=== PATIENT | female | born 1980 | race Caucasian/White ===

== ENCOUNTER 2025-06-11 20:52 | Day surgery (SDC) | payer OTHER, SELFPAY ==
[2025-06-11] VITALS (10 sets, daily range): BP systolic 126–153; BP diastolic 74–99; BMI 46.0
[2025-06-11 11:42] LABS: Urine Character Clear (Clear)
[2025-06-11 11:47] LABS: Hematocrit 39.6 % (37.0-47.0); Hemoglobin 12.9 g/dL (12.0-16.0); Mean Corp Hgb Conc. 32.6 g/dL (33.0-37.0); Mean Corpuscular Volume 84.8 fL (81.0-99.0); Nucleated Red Blood Cells % 0 %; Platelet Count 311 10^3/uL (130-400); Red Cell Dist. Width 14.2 % (11.5-14.5)
[2025-06-11 12:09] LABS: ALT (SGPT) 12 U/L (0-35); AST (SGOT) 13 U/L (14-36); Albumin 3.9 g/dl (3.5-5.0); Alkaline Phosphatase 59 U/L (38-126); Blood Urea Nitrogen 13 mg/dl (7-17); Calcium 9.2 mg/dl (8.4-10.2); Carbon Dioxide 25 mmol/L (22-30); Chloride 109 mmol/L (98-107); Glucose 93 mg/dl (70-99); Lipase 60 U/L (23-300); Potassium 4.7 mmol/L (3.5-5.1); Sodium 138 mmol/L (135-145); Total Protein 6.7 g/dl (6.3-8.2); eGFR > 60.00
[2025-06-11 12:14] LABS: HCG, Serum Qualitative Screen Negative
--- NOTE | 2025-06-11 13:33 | ED.GENMED ---
History of Present Illness
<Kamari De Jesus MD, Resident - Last Filed: 06/11/25 15:53>
General
Chief Complaint: Abdominal Pain
Source: patient
Exam Limitations: none
Time Seen by Provider: 06/11/25 13:13
Nursing documentation reviewed up to this point in time: agreed with
History of Present Illness
History of Present Illness:
This is a 45-year-old female with history of PCOS, ovarian cyst, Chiari malformation and hypertension presenting in the emergency department with complaints of right lower quadrant pain which started when she woke up around 6:15 in the morning. She
went to the urgent care and was sent in the emergency department for further evaluation. Patient reports that pain is 8/10. Sharp, intermittent, unsure of any aggravating or relieving factors. Denies any radiation to groin or back. Denies any
urinary symptoms, denies any GI symptoms including constipation or diarrhea, nausea or vomiting, denies any fevers or chills, denies any chest pain, denies any shortness of breath.
Denies any recent sick contacts or any recent sickness.
Denies any changes in the medication recently.
Past History
<Kamari De Jesus MD, Resident - Last Filed: 06/11/25 15:53>
Past History
ED Past Medical History: HTN and Other (PCOS)
ED Past Surgical History: Brain
Patient has exhibited threatening behavior?: No
Social History
Tobacco: Non-smoker
Alcohol: Occasional
Drug: None
Personal: Single
Living: with family
Family History
Family History: Other (Noncontributory)
Review of Systems
<Kamari De Jesus MD, Resident - Last Filed: 06/11/25 15:53>
Review of Systems
Allergies reviewed?: Yes
All Other Systems: ROS reviewed and negative except as documented in HPI and ROS
Constitutional: Denies fever or chills
EENT: Denies sore throat
Respiratory: Denies cough
Cardiac: Denies chest pain
ABD/GI: Reports abdominal pain (Right lower quadrant and hypogastric quadrant); Denies nausea, vomiting, diarrhea or constipated
: Denies dysuria
Musculoskeletal: Denies joint pain
Skin: Denies itching
Neurological: Denies dizzy or headache
Endocrine: Denies polyuria
Hematologic/Lymphatic: Denies bleeding
Psychiatric: Denies depression
Phy Exam
<Kamari De Jesus MD, Resident - Last Filed: 06/11/25 15:53>
General Physical Exam
General Presentation: mild distress
General age: appears stated age
General Skin: warm
General Habitus: obese
General Mental: alert
General Hydration: appears well hydrated
Cardiovascular Exam
Cardiovascular Exam: regular rate/rhythm and no murmur
Pulmonary Exam
Pulmonary Exam: lungs clear, no respiratory distress and no cough
Gastrointestinal Exam
Gastrointestinal Exam: soft, no pulsatile mass, no cva tenderness and tender (Right lower quadrant and hypogastric)
Neurological Exam
Neurological Exam: alert and oriented x3
Musculoskeletal Exam
Musculoskeletal Exam: full ROM
Course
<Kamari De Jesus MD, Resident - Last Filed: 06/11/25 15:53>
Orders/Labs/Results
Orders:
Orders
06/11/25 Lunch
NPO
Allow oral meds: Yes
Allow clear liquids: No
NPO with Ice Chips: No
NPO
Allow oral meds: No
Allow clear liquids: No
06/11/25 11:21
Test Result ONCE
06/11/25 11:30
Complete Blood Count/With Diff Urgent
Comprehensive Metabolic Panel Urgent
HCG, Serum Qualitative Screen Urgent
Lipase Urgent
Urinalysis Reflex To Culture Urgent
Date Specimen was Collected: 06/11/25
Time Specimen was Collected: 11:21
06/11/25 13:29
Ketorolac [Toradol] 15 mg IV NOW STA
06/11/25 13:31
CT Abd/pelvis W Iv Cont Urgent
Comment:
Reason For Exam: rlq pain
06/11/25 14:28
Morphine Sulfate 4 mg IV NOW STA
06/11/25 14:36
US Pelvis Only (non-obstetric) Urgent
Comment:
Reason For Exam: RLQ pain. h/o pcos
06/11/25 16:23
Type And Crossmatch [Type+Screen] Urgent
06/11/25 16:39
ABO2 Urgent
BBK Wristband Number:
Associate notified that ABO2 has been ordered: [id number]
Date: 06/11/25
Time: 16:30
Delivery Driver/Supervisor ID: [id number]
06/11/25 18:15
CA 125 Urgent
CA 19-9 [S] Urgent
CEA Urgent
Abnormal Lab Results
06/11/25
11:30
WBC 13.7 H 10^3/uL
(4.8-10.8)
MCHC 32.6 L g/dL
(33.0-37.0)
Abs Immat Gran (auto) 0.1 H 10^3/uL
(0-0.05)
Absolute Neuts (auto) 10.5 H 10^3/uL
(1.4-6.5)
Absolute Monos (auto) 0.7 H 10^3/uL
(0.1-0.6)
Immature Gran % 0.6 H %
(0-0.5)
Neutrophils % 76.5 H %
(42.2-75.2)
Lymphocytes % 13.7 L %
(20.5-51.1)
Chloride 109 H mmol/L
(98-107)
AST 13 L U/L
(14-36)
06/11/25 11:30
06/11/25 11:30
Vital Signs
Initial and Last Documented VS:
Initial Vital Signs
Temp Pulse Resp BP Pulse Ox
97.9 F 92 20 135/89 99
06/11/25 11:18 06/11/25 11:18 06/11/25 11:18 06/11/25 11:18 06/11/25 11:18
Last Documented Vital Signs
Temp Pulse Resp BP Pulse Ox
97.9 F 71 16 137/77 100
06/11/25 11:18 06/11/25 16:15 06/11/25 16:15 06/11/25 16:15 06/11/25 16:15
<Antwan Roque, DO - Last Filed: 06/11/25 13:45>
Orders/Labs/Results
Orders:
Orders
06/11/25 Lunch
NPO
Allow oral meds: Yes
Allow clear liquids: No
NPO with Ice Chips: No
NPO
Allow oral meds: No
Allow clear liquids: No
06/11/25 11:21
Test Result ONCE
06/11/25 11:30
Complete Blood Count/With Diff Urgent
Comprehensive Metabolic Panel Urgent
HCG, Serum Qualitative Screen Urgent
Lipase Urgent
Urinalysis Reflex To Culture Urgent
Date Specimen was Collected: 06/11/25
Time Specimen was Collected: 11:21
06/11/25 13:29
Ketorolac [Toradol] 15 mg IV NOW STA
06/11/25 13:31
CT Abd/pelvis W Iv Cont Urgent
Comment:
Reason For Exam: rlq pain
06/11/25 14:28
Morphine Sulfate 4 mg IV NOW STA
06/11/25 14:36
US Pelvis Only (non-obstetric) Urgent
Comment:
Reason For Exam: RLQ pain. h/o pcos
06/11/25 16:23
Type And Crossmatch [Type+Screen] Urgent
06/11/25 16:39
ABO2 Urgent
BBK Wristband Number:
Associate notified that ABO2 has been ordered: [id number]
Date: 06/11/25
Time: 16:30
Delivery Driver/Supervisor ID: [id number]
06/11/25 18:15
CA 125 Urgent
CA 19-9 [S] Urgent
CEA Urgent
Abnormal Lab Results
06/11/25
11:30
WBC 13.7 H 10^3/uL
(4.8-10.8)
MCHC 32.6 L g/dL
(33.0-37.0)
Abs Immat Gran (auto) 0.1 H 10^3/uL
(0-0.05)
Absolute Neuts (auto) 10.5 H 10^3/uL
(1.4-6.5)
Absolute Monos (auto) 0.7 H 10^3/uL
(0.1-0.6)
Immature Gran % 0.6 H %
(0-0.5)
Neutrophils % 76.5 H %
(42.2-75.2)
Lymphocytes % 13.7 L %
(20.5-51.1)
Chloride 109 H mmol/L
(98-107)
AST 13 L U/L
(14-36)
06/11/25 11:30
06/11/25 11:30
Vital Signs
Initial and Last Documented VS:
Initial Vital Signs
Temp Pulse Resp BP Pulse Ox
97.9 F 92 20 135/89 99
06/11/25 11:18 06/11/25 11:18 06/11/25 11:18 06/11/25 11:18 06/11/25 11:18
Last Documented Vital Signs
Temp Pulse Resp BP Pulse Ox
97.9 F 71 16 137/77 100
06/11/25 11:18 06/11/25 16:15 06/11/25 16:15 06/11/25 16:15 06/11/25 16:15
<Yamila Clinton MD - Last Filed: 06/11/25 18:29>
Orders/Labs/Results
Orders:
Orders
06/11/25 Lunch
NPO
Allow oral meds: Yes
Allow clear liquids: No
NPO with Ice Chips: No
NPO
Allow oral meds: No
Allow clear liquids: No
06/11/25 11:21
Test Result ONCE
06/11/25 11:30
Complete Blood Count/With Diff Urgent
Comprehensive Metabolic Panel Urgent
HCG, Serum Qualitative Screen Urgent
Lipase Urgent
Urinalysis Reflex To Culture Urgent
Date Specimen was Collected: 06/11/25
Time Specimen was Collected: 11:21
06/11/25 13:29
Ketorolac [Toradol] 15 mg IV NOW STA
06/11/25 13:31
CT Abd/pelvis W Iv Cont Urgent
Comment:
Reason For Exam: rlq pain
06/11/25 14:28
Morphine Sulfate 4 mg IV NOW STA
06/11/25 14:36
US Pelvis Only (non-obstetric) Urgent
Comment:
Reason For Exam: RLQ pain. h/o pcos
06/11/25 16:23
Type And Crossmatch [Type+Screen] Urgent
06/11/25 16:39
ABO2 Urgent
BBK Wristband Number:
Associate notified that ABO2 has been ordered: [id number]
Date: 06/11/25
Time: 16:30
Delivery Driver/Supervisor ID: [id number]
06/11/25 18:15
CA 125 Urgent
CA 19-9 [S] Urgent
CEA Urgent
Abnormal Lab Results
06/11/25
11:30
WBC 13.7 H 10^3/uL
(4.8-10.8)
MCHC 32.6 L g/dL
(33.0-37.0)
Abs Immat Gran (auto) 0.1 H 10^3/uL
(0-0.05)
Absolute Neuts (auto) 10.5 H 10^3/uL
(1.4-6.5)
Absolute Monos (auto) 0.7 H 10^3/uL
(0.1-0.6)
Immature Gran % 0.6 H %
(0-0.5)
Neutrophils % 76.5 H %
(42.2-75.2)
Lymphocytes % 13.7 L %
(20.5-51.1)
Chloride 109 H mmol/L
(98-107)
AST 13 L U/L
(14-36)
06/11/25 11:30
06/11/25 11:30
Vital Signs
Initial and Last Documented VS:
Initial Vital Signs
Temp Pulse Resp BP Pulse Ox
97.9 F 92 20 135/89 99
06/11/25 11:18 06/11/25 11:18 06/11/25 11:18 06/11/25 11:18 06/11/25 11:18
Last Documented Vital Signs
Temp Pulse Resp BP Pulse Ox
97.9 F 71 16 137/77 100
06/11/25 11:18 06/11/25 16:15 06/11/25 16:15 06/11/25 16:15 06/11/25 16:15
<Kamari De Jesus MD, Resident - Last Filed: 06/11/25 15:53>
MDM/Problems Addressed
Differential Diagnosis Includes:
Appendicitis vs ovarian cyst rupture vs ovarian torsion vs kidney stone
MDM/Problems Addressed:
Initial workup including CBC showed slight elevation of WBC to 13.7, CMP unremarkable, serum lipase within normal limits. Beta-hCG negative. Urine is clean
check CT abd/pel with contrast
IV Toradol 15 mg for pain
update:
Patient continues to experience pain 06/27. Awaiting CT results. Will give IV 4 mg morphine\\
Update 2:38
CT :1. Large cystic mass within the anterior pelvis measuring roughly 14.4 x 12.0 x 10.6 cm, likely arising from the right ovary and suspicious for ovarian epithelial neoplasm. Small amount of free fluid within the right lower quadrant and pelvis.
No retroperitoneal or pelvic lymphadenopathy. No peritoneal implants appreciated.
2. Moderate amount stool within the proximal colon with debris/fecal material within the distal ileum suggestive of constipation and delayed transit time. Unremarkable appendix.
will get US pelvis non obs for additional eval.
update: 3:50
Case was discussed with harpoon engagement planning operator Dr. Riggins, who agreed to see the patient in the emergency department. She also recommended type and screen as well as n.p.o. until further evaluation. Orders placed
Chronic conditions affecting care: HTN
<Kamari De Jeuss MD, Resident - Last Filed: 06/11/25 15:53>
*Pulse Oximetry
SaO2: 99
Oxygen Mode of Delivery: Room air
<Yamila Clinton MD - Last Filed: 06/11/25 18:29>
*Radiology
Radiology exam reviewed: radiology read reviewed
*Pulse Oximetry
Patient hypoxic: no
*Critical Care Note
Total Time (30-74mins, 75-104mins- exclusive of procedures): Not Applicable
<Yamila Clinton MD - Last Filed: 06/11/25 18:29>
Patient Management
Social determinants of health affecting care: Living situation and Strong social support
Discussion with other providers: Other (Dr Riggins)
<Yamila Clinton MD - Last Filed: 06/11/25 18:29>
Update Note
Update Note:
Patient will be brought to the OR by Dr Kilpatrick for removal of cyst.
ED Attending Note
<Kamari De Jesus MD, Resident - Last Filed: 06/11/25 15:53>
-
Portions of this chart may have been created with voice recognition software.� Occasional wrong word or��sound alike� substitutions may have occurred due to the inherent limitations of voice recognition software.
<Antwan Roque DO - Last Filed: 06/11/25 13:45>
ED Attending Note
Patient seen and examined by attending physician: Yes
I performed a history and physical exam of patient and discussed management with resident, I reviewed resident's note and agree with documented findings and plan of care.: Yes
ED Attending Note:
I have seen and evaluated the patient with a [id number] encounter. I have spoken to the resident and involved in the medical history, the physical exam, medical decision making.
Evaluation and management service: agree unless noted differently below.
Results interpretation: agree unless noted differently below.
Focused HPI: 45-year-old female presenting with relatively sudden onset of right lower abdominal pain. Throughout the day, symptoms have progressively worsened. She denies back pain or urinary symptoms
Physical exam: On exam, patient is uncomfortable. She cannot find a comfortable position. She does have point tenderness to right lower quadrant
Medical Decision Making: Her discomfort is concerning for kidney stone patient denies any back pain. The sudden onset points away from surgical pathology in regards to acute appendicitis but there is also a concern for ovarian torsion. She does
have a history of PCOS. Will send patient immediately to the CT scanner. If CT without acute pathology, will obtain pelvic ultrasound
Discharge Plan
Departure
Patient Disposition: OR
Date of Disposition: 06/11/25
Time of Disposition: 18:27
Presentation/result/management discussed w/ accepting MD/DO: Finesse
Patient with high blood pressure during this ER visit?: Yes
Condition: Good
Discharge Problem:
right adnexal mass
Prescriptions:
No Action
prednisone 20 mg tablet
60 mg PO DAILY Qty: 21 0RF
hydrochlorothiazide 12.5 mg tablet
12.5 mg PO DAILY Qty: 14 0RF
valacyclovir [Valtrex] 1 gram tablet
1,000 mg PO Q8H 7 Days Qty: 21 0RF
Referrals:
Aarti Lal CRNP [Family Provider]
Interventions
Interventions:
*Risk Screen - Suicide Last Done: 06/11/25 13:35
*General Assessment Last Done: 06/11/25 13:35
*Neglect/Abuse Screening Last Done: 06/11/25 13:35
*ED- Fall Risk Assessment Last Done: 06/11/25 13:35
*ED COVID-19 Vaccine History Last Done: 06/11/25 13:35
AA-Nfonen-Rjeloxhoao Assessment Last Done: 06/11/25 13:35
Discharge Date and Time
Print Language: FAROESE
[2025-06-11] MEDS: TORADOL 15 MG IV (13:41)
[2025-06-11] MEDS: MORPHINE SULFATE 4 MG IV (14:40)
--- NOTE | 2025-06-11 16:26 | EDRN ---
Blood drawn for type and screen drawn and sent.
--- NOTE | 2025-06-11 17:28 | EDRN ---
Pt updated as she was asking to drink. Pt told no drinking until LOST AND FOUND CLERK is here to see her. LOST AND FOUND CLERK contacted by Dr. Clinton and pt needs this assessment.
--- NOTE | 2025-06-11 17:50 | EDRN ---
Dr. Riggins in room w/pt at this time.
[2025-06-11 19:08] LABS: CEA 0.66 ng/ml
[2025-06-11 20:12] LABS: CA 125 15.3 U/mL (0-35)
[2025-06-12 00:30] VITALS: BP 106/54; BP 146/99
[2025-06-12 00:45] VITALS: BP 148/86
[2025-06-12 01:00] VITALS: BP 127/82
--- NOTE | 2025-06-12 01:06 | W.IMMPOSTOP ---
Addendum entered and electronically signed by Allyn Riggins DO 06/13/25 00:14:
postop dx: Large right adnexal cystic mass, right adnexal torsion, pelvic pain.
Original Note:
Surgical Immed Post Op Note
-
Primary Surgeon: Allyn Riggins DO
Assisting Surgeon: none
Pre-op Diagnosis: Right adnexal cyst; pelvic pain
Post-op Diagnosis: same
Procedure Performed: Operative laparoscopic right salpingo-oopherectomy; lysis adhesion
Anesthesia Type: general ET Dr. Laura
Specimen / Cultures: 1. peritoneal fluid for cytology 2. right tube and ovary
Estimated Blood Loss: 10ml
Urine output: 300ml
Complications: none
Operative Findings: enlarged right tube and ovary approx 14 cm, purplish color and brown fluid noted in peritoneal cavity c/w ruptured cyst. Torsion of right adnexa noted. Adhesive band extending from right adnexal mass to peritoneal wall toward
sigmoid colon. Normal appearing left tube and ovary. Normal appearing uterus.
Counts correct times 2.
Stable to recovery.
[2025-06-12 01:15] VITALS: BP 125/67
--- NOTE | 2025-06-12 01:44 | PTCARENOTE ---
Patient arrived from PACU in bed, AAOx3 able to make needs known. IVs flushed and patent.
[2025-06-12] MEDS: TORADOL 15 MG IV ×2 (01:52→08:08)
[2025-06-12 02:38] VITALS: BP 126/70
[2025-06-12 07:00] VITALS: BP 130/79
--- NOTE | 2025-06-12 07:06 | W.PN.OBG.DWH ---
Today's Communication / Plan
-
labs
dc home today if kala diet
Assessment/Plan
-
POD#1 s/p operative laparoscopy with RSO, lysys adhesions
doing well.
D /c home today after labs and kala diet.
Reviewed dc instructions
Subjective Data
-
No complaints. Feeling well.
Tolerating pain.
Kala clears
No N/V/ chest pain or sob
Objective Data
-
Vital Signs
Temp Pulse Resp BP Pulse Ox
97.4 F 71 22 126/70 96
06/12/25 02:38 06/12/25 02:38 06/12/25 02:38 06/12/25 02:38 06/12/25 02:38
VSS afeb
COr: regular
Abd: soft NDNT inc cdi no drainage
incisions clean, dry, intact
[2025-06-12] MEDS: NORVASC 5 MG PO (08:08)
[2025-06-12] MEDS: ZESTRIL 40 MG PO (08:08)
[2025-06-12] MEDS: WELLBUTRIN XL (24 hour extended release) 300 MG PO (08:08)
[2025-06-12 08:21] LABS: Hematocrit 37.5 % (37.0-47.0); Hemoglobin 12.4 g/dL (12.0-16.0); Mean Corp Hgb Conc. 33.1 g/dL (33.0-37.0); Mean Corpuscular Volume 84.5 fL (81.0-99.0); Nucleated Red Blood Cells % 0 %; Platelet Count 266 10^3/uL (130-400); Red Cell Dist. Width 14.1 % (11.5-14.5)
[2025-06-12 08:23] LABS: Blood Urea Nitrogen 13 mg/dl (7-17); Carbon Dioxide 24 mmol/L (22-30); Chloride 107 mmol/L (98-107); Estimated Creatinine Clearance > 125 ml/min; Potassium 4.7 mmol/L (3.5-5.1); Sodium 137 mmol/L (135-145)
--- NOTE | 2025-06-12 10:00 | PTCARENOTE ---
10:00 Pt tolerated regular diet (breakfast), no c/o nausea or severe pain. Dr. Riggins notified and pt able to be discharge to home. Explain to pt.
--- NOTE | 2025-06-13 00:39 | W.DS.TRANS ---
DC Summary - Machine Printer
-
Discharge Instructions:
Discharge Diagnosis/Procedures right adnexal mass
Diet No restrictions
Activity No strenuous activity
Additional Activity no lifting anything >10 lbs for 3 wks; no
strenuous exercise; nothing should be placed
into vagina for 3 wks ( no tampons, no
intercourse)
Driving Restrictions Do not drive if you are taking oxycodone
Bathing Restrictions OK to Shower
Wound Care You may shower. Dry incisions well.
Instructions:
Stand-Alone Forms:
Changes to Home Medications: No
Discharge Medications:
DC Medications w/original date entered in [facility]
amlodipine 5 mg tablet (Norvasc) 5 mg PO DAILY 06/11/25
bupropion HCl 300 mg 24 hr tablet, extended release (Wellbutrin XL) 300 mg PO DAILY 06/11/25
fexofenadine 180 mg tablet 180 mg PO DAILYPRN PRN ALLERIES 06/11/25
lisinopril 40 mg tablet 40 mg PO DAILY 06/11/25
phentermine 37.5 mg tablet 37.5 mg PO DAILY 06/11/25
topiramate 25 mg tablet 50 mg PO HS 06/11/25
acetaminophen 325 mg tablet 650 mg (2 x 325 mg) PO Q4HPRN PRN mild pain 1 day #1 tab 06/12/25
oxycodone 5 mg tablet 5 mg PO Q4HPRN PRN severe pain when tolerating PO #8 tabs 06/12/25
Home Medication Changes
Pending Results: Yes (surgical pathology)
Total time spent discharging patient (in min): 30
[2025-06-14 10:26] LABS: CA 19-9 14 U/mL (<=35)
== END 2025-06-12 11:32 | disposition home or self-care (01) ==
LOC: SDS 20:52
PROVIDERS: Emergency Medicine; ATTENDING PHYSICIAN Obstetrics & Gynecology; EMERGENCY PHYSICIAN Student in an Organized Health Care Education/Training Program; FAMILY PHYSICIAN Nurse Practitioner Family
DX: R10.2 Pelvic and perineal pain (principal); R19.00 Intra-abdominal and pelvic swelling, mass and lump, unspecified site; N83.511 Torsion of right ovary and ovarian pedicle; N83.201 Unspecified ovarian cyst, right side; K66.1 Hemoperitoneum; K66.8 Other specified disorders of peritoneum
CPT/HCPCS: 58661; 74177; 76856; 80051; 80053; 81003; 82378; 82565; 83690; 84520; 84703; 85025; 86301; 86304; 86850; 86900; 86901; 88112; 88305; 96374; 96375; 99285; Q9967